=== PATIENT | female | born 1950 | race Caucasian/White ===

== ENCOUNTER 2016-05-01 13:54 | Inpatient (IN) | payer MEDICAID ==
[~2016-05-01] VITALS: Ht 154.9 cm; Wt 54.9 kg
[2016-05-01 01:39] VITALS: BP 168/77
[2016-05-01 04:36] VITALS: BP 147/78
[2016-05-01 11:05] VITALS: BP 176/96
[2016-05-01] MEDS ORDERED: TRAMADOL 50MG TABLET PO ONE (15:15)
[2016-05-01 20:13] VITALS: BP 160/80
[2016-05-01 22:35] LABS: BASOPHILS % 0.6 % (0.0-2.0); EOSINOPHILS % 0.2 % (0.0-5.0); HEMATOCRIT. 41.3 % (36.0-48.0); HEMOGLOBIN. 14.1 g/dL (12.0-16.0); LYMPHOCYTES % 13.9 % (20.0-50.0); MEAN CORPUSCULAR HEMOGLOBIN 30.9 pg (28.0-32.0); MEAN CORPUSCULAR HGB CONC 34.1 g/dL (31.0-37.0); MEAN CORPUSCULAR VOLUME 90.7 fL (81.0-99.0); MEAN PLATELET VOLUME 8.9 fl (7.4-10.4); MONOCYTES % 5.8 % (2.0-8.0); NEUTROPHILS % 79.5 % (40.0-76.0); PLATELET 172 x1000/uL (130-400); RED BLOOD CELL COUNT 4.55 mill/uL (4.2-5.4); WHITE BLOOD COUNT 8.8 x1000/uL (4.5-11.0)
[2016-05-01 22:41] LABS: CHLORIDE 108 mEq/L (98-107); INDEX HEMOLYSI 1 (1-3); INDEX ICTERIC 1 (1-4); INDEX LIPEMIC 1 (1-3)
[2016-05-01 22:46] LABS: ANION GAP 12; CALCIUM 8.8 mg/dL (8.5-10.1); CARBON DIOXIDE 24 mEq/L (21-32); UREA NITROGEN BLOOD 18 mg/dL (7-21); eGFR > 60 mL/min (>60)
[2016-05-01 23:05] VITALS: BP 176/96
[2016-05-01 23:26] LABS: GLUCOSE URINE NEGATIVE (NEGATIVE); KETONES URINE NEGATIVE (NEGATIVE); LEUKOCYTE ESTERASE URINE NEGATIVE (NEGATIVE); NITRITE URINE NEGATIVE (NEGATIVE); OCCULT BLOOD URINE 2+ (NEGATIVE); PROTEIN URINE NEGATIVE (NEGATIVE); SPECIFIC GRAVITY URINE 1.004 (1.005-1.030); UROBILINOGEN URINE 0.2 E.U./dL (0.2-1.0)
[2016-05-01 23:29] LABS: CLARITY URINE CLEAR (CLEAR); COLOR URINE STRAW (YELLOW)
[2016-05-01 23:55] LABS: BACTERIA URINE NONE SEEN; RBC URINE 0-2 /hpf (0-2); SQUAMOUS EPITHELIAL CELL URINE NONE SEEN /lpf (RARE/1+); WBC URINE 0-2 /hpf (0-2)
[2016-05-02] MEDS: MORPHINE SULFATE 2 MG/ML CPJ (NOT FOR IM USE) IV PRN ×2 (00:02→18:43)
[2016-05-02 06:06] VITALS: BP 170/90
[2016-05-02 06:14] LABS: PROTHROMBIN TIME 10.2 sec
[2016-05-02] MEDS: CLONIDINE 0.1MG TABLET PO PRN (06:39)
[2016-05-02 06:41] LABS: BASOPHILS % 0.4 % (0.0-2.0); EOSINOPHILS % 0.4 % (0.0-5.0); HEMATOCRIT. 40.5 % (36.0-48.0); HEMOGLOBIN. 14.1 g/dL (12.0-16.0); LYMPHOCYTES % 16.4 % (20.0-50.0); MEAN CORPUSCULAR HEMOGLOBIN 31.5 pg (28.0-32.0); MEAN CORPUSCULAR HGB CONC 34.7 g/dL (31.0-37.0); MEAN CORPUSCULAR VOLUME 90.5 fL (81.0-99.0); MEAN PLATELET VOLUME 9.1 fl (7.4-10.4); MONOCYTES % 5.9 % (2.0-8.0); NEUTROPHILS % 76.9 % (40.0-76.0); PLATELET 174 x1000/uL (130-400); RED BLOOD CELL COUNT 4.47 mill/uL (4.2-5.4); RED CELL DISTRIBUTION WIDTH 13.7 % (11.6-14.6); WHITE BLOOD COUNT 7.3 x1000/uL (4.5-11.0)
[2016-05-02 07:00] LABS: CALCIUM 8.8 mg/dL (8.5-10.1); CHLORIDE 107 mEq/L (98-107); INDEX HEMOLYSI 1 (1-3); INDEX ICTERIC 1 (1-4); INDEX LIPEMIC 1 (1-3)
[2016-05-02 07:04] LABS: ANION GAP 12; CARBON DIOXIDE 25 mEq/L (21-32); UREA NITROGEN BLOOD 21 mg/dL (7-21); eGFR > 60 mL/min (>60)
[2016-05-02] MEDS ORDERED: OMEPRAZOLE 20MG CAPSULE EXTENDED RELEASE PO SCH (07:50)
[2016-05-02 08:00] VITALS: BP 153/85
[2016-05-02] MEDS: ENOXAPARIN 40MG/0.4ML SYR SUBCUT SCH (08:07)
[2016-05-02 12:00] VITALS: BP 150/81
[2016-05-02 16:00] VITALS: BP 151/72
[2016-05-03] MEDS: OMEPRAZOLE 20MG CAPSULE EXTENDED RELEASE PO SCH (06:56)
[2016-05-03 08:00] VITALS: BP 136/84
[2016-05-03] MEDS: ENOXAPARIN 40MG/0.4ML SYR SUBCUT SCH (08:37)
[2016-05-03 12:00] VITALS: BP 146/73
[2016-05-03] MEDS ORDERED: GADOBENATE DIMEGLUMINE 529 MG/ML 10ML IV ONE (12:31)
[2016-05-03 16:00] VITALS: BP 135/70
[2016-05-03 20:00] VITALS: BP 166/83
[2016-05-03] MEDS: CLONIDINE 0.1MG TABLET PO PRN (20:43)
[2016-05-04] VITALS: BP 144/72
[2016-05-04 04:00] VITALS: BP 138/76
[2016-05-04 08:00] VITALS: BP 160/83
[2016-05-04] MEDS: ENOXAPARIN 40MG/0.4ML SYR SUBCUT SCH (08:54)
[2016-05-04] MEDS: OMEPRAZOLE 20MG CAPSULE EXTENDED RELEASE PO SCH (08:54)
[2016-05-04 12:00] VITALS: BP 149/82
[2016-05-04] MEDS: MORPHINE SULFATE 2 MG/ML CPJ (NOT FOR IM USE) IV PRN (12:03)
[2016-05-04 16:00] VITALS: BP 153/79
[2016-05-04] MEDS: DOCUSATE SODIUM 100MG CAPSULE PO SCH (18:12)
[2016-05-04 20:00] VITALS: BP 162/83
[2016-05-04] MEDS ORDERED: POLYETHYLENE GLYCOL 3350 (17GM) 1 DOSE PACK PO SCH (21:00)
[2016-05-05] VITALS: BP 144/85
[2016-05-05 04:00] VITALS: BP 141/80
[2016-05-05 08:00] VITALS: BP 186/87
[2016-05-05] MEDS: CLONIDINE 0.1MG TABLET PO PRN (08:59)
[2016-05-05] MEDS: DOCUSATE SODIUM 100MG CAPSULE PO SCH (08:59)
[2016-05-05] MEDS: ENOXAPARIN 40MG/0.4ML SYR SUBCUT SCH (09:00)
[2016-05-05] MEDS ORDERED: FAMOTIDINE 20MG TABLET PO SCH (09:00)
[2016-05-05 12:00] VITALS: BP 149/82
[2016-05-05] MEDS: MORPHINE SULFATE 2 MG/ML CPJ (NOT FOR IM USE) IV PRN (15:54)
[2016-05-05 16:00] VITALS: BP 146/74
[2016-05-05 17:49] VITALS: BP 145/80
== END 2016-05-05 18:35 | disposition home or self-care (01) | DRG 347 ==
LOC: ER 14:13 → 6EST 20:17
PROVIDERS: ADMIT Internal Medicine; ATTEND Internal Medicine
DX: S32.018A Other fracture of first lumbar vertebra, initial encounter for closed fracture (principal); G30.9 Alzheimer's disease, unspecified; I10 Essential (primary) hypertension; F02.80 Dementia in other diseases classified elsewhere, unspecified severity, without behavioral disturbance, psychotic disturbance, mood disturbance, and anxiety; L93.0 Discoid lupus erythematosus; D32.9 Benign neoplasm of meninges, unspecified; E78.00 Pure hypercholesterolemia, unspecified; E78.5 Hyperlipidemia, unspecified; M46.96 Unspecified inflammatory spondylopathy, lumbar region; M48.06 Spinal stenosis, lumbar region; W13.2XXA Fall from, out of or through roof, initial encounter; Z85.3 Personal history of malignant neoplasm of breast; Z85.42 Personal history of malignant neoplasm of other parts of uterus; Z91.14 Patient's other noncompliance with medication regimen; Z91.19 Patient's noncompliance with other medical treatment and regimen; Z98.51 Tubal ligation status
CPT/HCPCS: 36415; 51702; 70551; 70552; 72040; 72070; 72100; 72131; 72148; 80048; 81001; 85025; 85610; 97116; 97161; 97165; 97530; 97535; 97760; 99285; A9577; J1650; J2270